=== PATIENT | female | born 2005 | race Caucasian/White ===

== ENCOUNTER 2023-02-06 22:48 | Emergency (ER) | payer BC ==
[~2023-02-06] VITALS: Ht 175.3 cm; Wt 74.8 kg
[2023-02-06 23:09] VITALS: BP_SYST 122
--- NOTE | 2023-02-06 23:15 | NUR ---
Patient triaged and placed in waiting room. VSS and patient appears in no acute distress at this time. Accompanied by friend, awaiting available bed, and MD notified of need for MSE.
--- NOTE | 2023-02-07 02:19 | NUR ---
Patient placed in ER BED 3 for evaluation. Bed in lowest position with siderails up. Instructed to notify ED staff for any changes in condition or worsening of symptoms. Patient verbalized understanding.
--- NOTE | 2023-02-07 03:18 | NUR ---
Dr. Lewis at bedside examining the patient.
[2023-02-07] MEDS ORDERED: NAPR-1172 PO (03:28)
[2023-02-07] MEDS ORDERED: IBUPROFEN 600 MG TABLET PO ONE (03:30)
[2023-02-07 04:04] VITALS: BP_SYST 112
--- NOTE | 2023-02-07 04:05 | NUR ---
Patient given written and verbal discharge instructions and verbalizes understanding. ER MD discussed with patient the results and treatment provided. Patient in stable condition. ID arm band removed. Rx of NAPROXEN given. Patient educated on pain management and to follow up with PMD. Pain Scale 2/10. Opportunity for questions provided and answered. Medication side effect fact sheet provided.
== END 2023-02-07 04:04 | disposition home or self-care (01) ==
LOC: SED 22:48
DX: S93.401A Sprain of unspecified ligament of right ankle, initial encounter (principal); Z79.899 Other long term (current) drug therapy; X58.XXXA Exposure to other specified factors, initial encounter; Y93.02 Activity, running; Y92.89 Other specified places as the place of occurrence of the external cause; Y99.8 Other external cause status
CPT/HCPCS: 99283